=== PATIENT | male | born 1995 | race Caucasian/White ===

== ENCOUNTER 2018-05-12 08:22 | Emergency (ER) | payer SELFPAY ==
[2018-05-12] MEDS: metroNIDAZOLE 500 MG TABLET PO (08:41)
[2018-05-12] MEDS: cefTRIAXone IM 250 MG VIAL IM (08:41)
[2018-05-12] MEDS: AZITHROMYCIN 250 MG TABLET. PO (08:41)
[2018-05-12 08:50] LABS: BILIRUBIN,URINE NEGATIVE (NEG); CLARITY,URINE CLEAR; COLOR,URINE YELLOW; GLUCOSE,URINE NEGATIVE (NEG); NITRITE,URINE NEGATIVE (NEG); PROTEIN,URINE NEGATIVE (NEG-TRACE); UROBILINOGEN,URINE 0.2 mg/dL (0.2 mg/dL)
[2018-05-12 08:59] LABS: BACTERIA,URINE FEW /HPF (0-FEW); RBC,URINE RARE /HPF (0-2); SQUAMOUS EPITHELIAL CELL,UR FEW /LPF; WBC,URINE RARE /HPF (0-4)
== END 2018-05-12 09:27 | disposition home or self-care (01) ==
LOC: ER 09:27
DX: Z20.2 Contact with and (suspected) exposure to infections with a predominantly sexual mode of transmission (principal); R30.0 Dysuria
CPT/HCPCS: 81001; 87491; 87591; 96372; 99284; J0696; Q0144